=== PATIENT | male | born 1960 | race Caucasian/White ===

== ENCOUNTER → 2021-03-30 16:16 | Outpatient (CLI) | payer MEDICARE, MEDICAID, SELFPAY ==
--- NOTE | 2021-03-30 16:27 | DI.RAD.S_ITS ---
PROCEDURE: XR CHEST 2V INDICATIONS: LEFT PLEURAL EFFUSION TECHNIQUE: 2 views of the chest were acquired. COMPARISON: [facility], CR, XR CHEST 1 VIEW, 06/07/2019, 22:22. FINDINGS: Surgical changes and devices: Post median sternotomy. Dual chamber left cardiac pacer present. Lungs and pleura: Small left basilar pleural effusion and left basilar airspace opacity. Right lung is clear. No pneumothorax. Mediastinum: Mediastinal contours are normal. Heart size is normal. Bones and chest wall: No suspicious bony abnormalities. Soft tissues appear unremarkable. IMPRESSION: 1. Small left basilar pleural effusion and basilar airspace opacity consistent with compressive atelectasis versus consolidation. Dictated by: [facility] Interpreted: Matt Cintron MD on 03/30/2021 at 16:44 Transcribed by: EVERETTE on 03/30/2021 at 16:45 Approved by: Matt Cintron M.D. on 03/30/2021 at 17:18
== END ==
PROVIDERS: Referring Provider Internal Medicine Cardiovascular Disease; Visit Provider Internal Medicine Cardiovascular Disease
DX: J90 Pleural effusion, not elsewhere classified (principal)
CPT/HCPCS: 71046

== ENCOUNTER → 2024-06-06 08:17 | Outpatient (CLI) | payer MEDICARE, MEDICAID, SELFPAY ==
[2024-06-06 10:30] LABS: BUN Creatinine Ratio 13.7 (6-22); Blood Urea Nitrogen 16 mg/dL (9-20); Calcium 9.6 mg/dL (8.4-10.2); Carbon Dioxide 31 mmol/L (22-32); Chloride 105 mmol/L (98-107); Estimated Glomerular Filt Rate > 60 mL/min (>60); Glucose 88 mg/dL (80-110); HEMOLYSIS < 15 (0-50); Potassium 4.1 mmol/L (3.4-5.1); Sodium 143 mmol/L (137-145)
== END ==
PROVIDERS: Referring Provider Internal Medicine Cardiovascular Disease; Visit Provider Internal Medicine Cardiovascular Disease
DX: N18.30 Chronic kidney disease, stage 3 unspecified (principal)
CPT/HCPCS: 36415; 80048

== ENCOUNTER → 2024-06-16 | Outpatient (CLI) | payer MEDICARE, MEDICAID, SELFPAY ==
--- NOTE | 2024-06-16 | DI.ECHO.S_ITS ---
[facility]---------+ [facility] : : [address] : : [place] : : [id number] : : Phone: [phone] Echocardiogram Report + + :Name: ALVIN BRONSON Study Date: 06/16/2024 Height: 74 in : :[facility] ReadingLocation: Weight: 281 lb : : Gender: Male BSA: 2.5 m2 : :: 1960 Age: 63 yrs BP: 161/87 mmHg: :Reason For Study: ANEURYSM OF THE ASCENDING AORTA, WITHOUT : :RUPTURE : :Ordering Physician: GULSHAN, : :ELISA Performed By: Omar Enriquez : :Referring: ELISA MALIK : + + Interpretation Summary 1) Mild to moderately increased left ventricular thickness (concentric) with normal systolic function (EF 65-70%). 2) Grossly, mildly enlarged right ventricular size with normal function. There is a pacemaker lead in the right ventricle. 3) There is mild mitral regurgitation. 4) Aortic root is moderately enlarged at 4.4cm. 5) Compared to the Echo done 05/02/2023, aortic root enlargement has increased from 4.3cm to 4.4cm on this study. Procedure: A two-dimensional transthoracic echocardiogram with color flow and Doppler was performed. The study quality was technically good. Comparison is made with the echocardiogram of 05/02/23. The patient has a paced rhythm. The patient had occasional PVCs during the exam. Left Ventricle: The left ventricle is normal in size. Left ventricular wall thickness is mild-moderately increased. There is no ventricular septal defect visualized. The ejection fraction is estimated to be 65-70%. Left ventricular systolic function appears normal without focal wall motion abnormalities. Right Ventricle: The right ventricle is mildly dilated. There is a pacemaker lead in the right ventricle. The right ventricular systolic function is normal. Atria: The left atrial size is normal. Right atrial size is normal. There is a catheter/pacemaker lead seen in the right atrium. There is no Doppler evidence for an atrial septal defect. Mitral Valve: The mitral valve is normal in structure and function. There is mild mitral regurgitation. Aortic Valve: The aortic valve is trileaflet. The aortic valve opens well. There is no aortic valve stenosis. There is mild aortic regurgitation. Tricuspid Valve: The tricuspid valve is normal in structure and function. There is mild tricuspid regurgitation. The right ventricular systolic pressure is estimated to be at least 29 mmHg based on an estimated right atrial pressure of 3 mm Hg. Pulmonic Valve: The pulmonic valve is normal in structure and function. There is no pulmonic valvular regurgitation. Great Vessels: The aortic root is moderately dilated. The dimensions of the ascending aorta are normal. The pulmonary artery is normal size. The IVC is of normal diameter and collapses greater than 50% with a sniff. This suggests a low right atrial pressure of 3 mm Hg. Pericardium/ Pleura There is no pericardial effusion. There is no pleural effusion. MMode/2D Measurements & Calculations LVIDd: 5.8 cm LVOT diam: 2.4 cm LVIDs: 3.3 cm Ao root diam: 4.4 cm FS: 42.6 % asc Aorta Diam: 3.7 cm EPSS: 0.82 cm IVSd: 1.6 cm LVPWd: 1.6 cm LV barnes. diameter/BSA (cm/m^2): 2.3 LV sys. diameter/BSA (cm/m^2): 1.3 LA A2 area: 16.7 cm2 RA long axis: 6.8 cm LA A4 area: 29.3 cm2 RA area: 21.0 cm2 LA length (vol): 6.4 cm RA vol: 54.9 ml LA vol: 65.2 ml RA : 21.9 ml/m2 LA vol index: 26.0 ml/m2 IVC diam: 1.7 cm RVD1 (basal): 4.5 cm RVD2 (mid): 3.9 cm TAPSE: 2.2 cm Doppler Measurements & Calculations Ao V2 max: 151.7 cm/sec LVOT Max Sarthak: 129.2 cm/sec Ao V2 mean: 112.4 cm/sec LV V1 max P.7 mmHg Ao max P.2 mmHg LV V1 VTI: 34.1 cm Ao mean P.5 mmHg CHERRY(I,D): 4.5 cm2 Ao V2 VTI: 35.9 cm CHERRY(V,D): 4.0 cm2 sev ratio: 0.95 CHERRY indexed to BSA (cm^2/m^2): 1.8 MV E max sarthak: 93.5 cm/sec TR max sarthak: 256.0 cm/sec MV A max sarthak: 88.0 cm/sec TR max P.2 mmHg MV E/A: 1.1 PA V2 max: 75.6 cm/sec Med Peak E' Sarthak: 6.6 cm/sec PA V2 mean: 44.5 cm/sec E/E' med: 14.3 PA mean P.99 mmHg Lat Peak E' Sarthak: 5.6 cm/sec KATHY pr(Accel): 12.2 mmHg E/E' lat: 16.6 E/e' average: 15.4 MV dec time: 0.31 sec MR ERO: 0.11 cm2 MR PISA: 1.7 cm2 SV(LVOT): 160.1 ml MR flow rate: 62.4 cm3/sec MR PISA radius: 0.52 cm Reading Physician:08:45 PM
== END ==
PROVIDERS: Referring Provider Internal Medicine Cardiovascular Disease; Visit Provider Internal Medicine Cardiovascular Disease
DX: I71.21 Aneurysm of the ascending aorta, without rupture (principal); I08.3 Combined rheumatic disorders of mitral, aortic and tricuspid valves; Z95.0 Presence of cardiac pacemaker
CPT/HCPCS: 93306

== ENCOUNTER → 2025-05-14 09:06 | Outpatient (CLI) | payer MEDICARE, MEDICAID, SELFPAY ==
--- NOTE | 2025-05-14 09:13 | DI.ECHO.S_ITS ---
[facility] +---------+ Hospital : : [address] : [place] : : [id number] : : Phone: [phone] Echocardiogram Report + + :Name: ALVIN BRONSON Study Date: 05/14/2025 Height: 74 in : :[facility] ReadingLocation: Weight: 289 lb : : Gender: Male BSA: 2.5 m2 : :: 1960 Age: 64 yrs BP: 172/100 mmHg: :Ordering Physician: GULSHAN, : :ELISA Performed By: Omar Enriquez : :Referring: ELISA MALIK : + + Interpretation Summary 1) Mild to moderately increased left ventricular thickness (concentric) with normal systolic function (EF 65-70%). 2) Grossly, mildly enlarged right ventricular size with normal function. There is a pacemaker lead in the right ventricle. 3) There is mild mitral regurgitation. 4) Aortic root is moderately enlarged at 4.5cm. 5) Hypertension present during the study (BP 172/100mmHg). 6) Compared to the Echo done 06/16/2024, aortic root enlargement has increased slightly from 4.4cm to 4.5cm on this study. Procedure: A two-dimensional transthoracic echocardiogram with color flow and Doppler was performed. The study quality was technically good. There is no prior echocardiogram noted for this patient. The patient was in atrial fibrillation with heart rates between 61-78 bpm during the exam. Left Ventricle: The left ventricle is normal in size. Left ventricular wall thickness is mild-moderately increased. There is no ventricular septal defect visualized. The ejection fraction is estimated to be 60-65%. There are no focal wall motion abnormalities. Diastolic function could not be accurately assessed due to unobtainable data. Right Ventricle: There is a pacemaker lead in the right ventricle. The right ventricle is not well visualized. Grossly, mildly enlarged right ventricular size with normal function. Atria: The left atrial size is normal. Right atrium not well visualized secondary to technical limitations. There is no Doppler evidence for an interatrial shunt. Mitral Valve: The mitral valve leaflets appear normal. There is no evidence of stenosis, fluttering, or prolapse. There is mild mitral regurgitation. Aortic Valve: The aortic valve is trileaflet. The aortic valve opens well. There is no aortic valve stenosis. There is trace aortic regurgitation. Tricuspid Valve: The tricuspid valve is not well visualized, but is grossly normal. There is mild tricuspid regurgitation. The right ventricular systolic pressure is estimated to be at least 42 mmHg based on an estimated right atrial pressure of 8 mm Hg. Pulmonic Valve: The pulmonic valve is not well seen, but is grossly normal. There is no pulmonic valvular regurgitation. Great Vessels: The aortic root is moderately dilated. The dimensions of the ascending aorta are normal. The pulmonary artery is normal size. The IVC is dilated (diameter is greater than 2.1 cm) yet it collapses greater than 50% with a sniff. This suggests a right atrial pressure of 8 mm Hg. Pericardium/ Pleura There is no pericardial effusion. MMode/2D Measurements & Calculations LVIDd: 5.2 cm LVOT diam: 2.4 cm LVIDs: 3.2 cm Ao root diam: 4.5 cm FS: 37.4 % asc Aorta Diam: 3.4 cm EPSS: 0.91 cm IVSd: 1.7 cm LVPWd: 1.9 cm LV barnes. diameter/BSA (cm/m^2): 2.0 LV sys. diameter/BSA (cm/m^2): 1.3 LA A2 area: 24.5 cm2 IVC diam: 2.2 cm LA A4 area: 17.7 cm2 LA length (vol): 5.0 cm LA vol: 74.0 ml LA vol index: 29.1 ml/m2 Doppler Measurements & Calculations Ao V2 max: 157.3 cm/sec LVOT Max Sarthak: 124.3 cm/sec Ao V2 mean: 107.1 cm/sec LV V1 max P.2 mmHg Ao max P.9 mmHg LV V1 VTI: 29.8 cm Ao mean P.2 mmHg CHERRY(I,D): 3.9 cm2 Ao V2 VTI: 35.1 cm CHERRY(V,D): 3.7 cm2 sev ratio: 0.85 CHERRY indexed to BSA (cm^2/m^2): 1.5 Med Peak E' Sarthak: 6.7 cm/sec TR max sarthak: 290.9 cm/sec Lat Peak E' Sarthak: 6.0 cm/sec TR max P.8 mmHg PA V2 max: 118.1 cm/sec PA V2 mean: 74.0 cm/sec PA mean P.5 mmHg PA pr(Accel): 29.3 mmHg SV(LVOT): 137.9 ml Reading Physician:10:16 AM
== END ==
LOC: ECHO 09:10
PROVIDERS: Referring Provider Internal Medicine Cardiovascular Disease; Visit Provider Internal Medicine Cardiovascular Disease
DX: I71.21 Aneurysm of the ascending aorta, without rupture (principal); I08.1 Rheumatic disorders of both mitral and tricuspid valves
CPT/HCPCS: 93306

== ENCOUNTER → 2025-05-26 07:36 | Outpatient (CLI) | payer MEDICARE, MEDICAID, SELFPAY ==
[2025-05-26 08:29] LABS: Hematocrit 42.5 % (41-53); Hemoglobin 14.7 g/dL (13.5-17.5); Mean Corpuscular HGB Conc 34.6 % (30-36); Mean Corpuscular Hemoglobin 31.1 PG (26-34); Mean Corpuscular Volume 89.9 fL (80-100); Platelet Count 123 X10^3/uL (150-400)
[2025-05-26 08:53] LABS: Blood Urea Nitrogen 19 mg/dL (9-20); Calcium 9.4 mg/dL (8.4-10.2); Carbon Dioxide 24 mmol/L (22-32); Chloride 109 mmol/L (98-107); Cholesterol 122 mg/dL (140-199); Estimated Glomerular Filt Rate > 60 mL/min (>60); Glucose 76 mg/dL (70-99); HDL Cholesterol 42 mg/dL (40-60); HEMOLYSIS 15 (0-50); Potassium 3.6 mmol/L (3.4-5.1); Sodium 143 mmol/L (137-145); Triglycerides 72 mg/dL (35-150)
== END ==
PROVIDERS: Referring Provider Internal Medicine Cardiovascular Disease; Visit Provider Internal Medicine Cardiovascular Disease
DX: I25.10 Atherosclerotic heart disease of native coronary artery without angina pectoris (principal)
CPT/HCPCS: 36415; 80048; 80061; 85027